=== PATIENT | female | born 1975 | race Two or more races ===

== ENCOUNTER 2024-10-11 14:55 | Outpatient (REF) | payer OTHER, SELFPAY ==
[2024-10-13 10:09] LABS: Age Gdln ACOG Testing Note (.); IGP, Aptima HPV, rfx 16/18,45 Note (.)
== END 2024-10-11 14:56 | disposition home or self-care (01) ==
LOC: LAB 14:55
PROVIDERS: Visit Provider Nurse Practitioner Family
DX: Z01.419 Encounter for gynecological examination (general) (routine) without abnormal findings (principal); Z90.710 Acquired absence of both cervix and uterus
CPT/HCPCS: 87624; 88175

== ENCOUNTER 2025-01-22 13:19 | Outpatient (OUT) | payer OTHER, SELFPAY ==
[2025-01-25 14:08] LABS: Pregnenolone, MS 33 ng/dL (.)
== END 2025-01-22 13:20 | disposition home or self-care (01) ==
PROVIDERS: Visit Provider Nurse Practitioner Family
DX: N95.1 Menopausal and female climacteric states (principal); Z90.710 Acquired absence of both cervix and uterus; E34.9 Endocrine disorder, unspecified
CPT/HCPCS: 36415; 82627; 82670; 82679; 84140; 84144; 84402; 84403